=== PATIENT | female | born 1955 | race Caucasian/White ===

== ENCOUNTER 2017-08-25 07:25 | Day surgery (SDC) | payer OTHER ==
[2017-08-25] MEDS ORDERED: CEFAZOLIN 2 GM/50 ML (PMX) 50 ML IVPB (10:00)
[2017-08-25] MEDS ORDERED: SOD CHLORIDE 0.9% 1,000 ML IV (10:00)
[2017-08-25] MEDS ORDERED: ONDANSETRON 4 MG INJ (15:36)
[2017-08-25] MEDS ORDERED: PROPOFOL 20 ML (15:36)
[2017-08-25] MEDS ORDERED: METOCLOPRAMIDE 10 MG INJ (15:36)
[2017-08-25] MEDS ORDERED: CEFAZOLIN 1 GM INJ (15:36)
[2017-08-25] MEDS ORDERED: LIDOCAINE 2% (SDV) 5 ML INJ (15:36)
[2017-08-25] MEDS ORDERED: MEPERIDINE 100 MG INJ (15:36)
[2017-08-25] MEDS ORDERED: ATROPINE 1 MG/10 ML SYRINGE (16:09)
[2017-08-25] MEDS ORDERED: EPHEDrine 25 MG/5 ML SYG (16:32)
[2017-08-25] MEDS ORDERED: HYDROCODONE/APAP (7.5/325) TAB PO (17:00)
[2017-08-25] MEDS ORDERED: FENTAnyl 50 MCG/ML VIAL IV ×3 (17:30)
[2017-08-25] MEDS ORDERED: METOCLOPRAMIDE 10 MG INJ IV (17:30)
[2017-08-25] MEDS ORDERED: MIDAZOLAM 1 MG/ML 2 ML INJ IV (17:30)
[2017-08-25] MEDS ORDERED: DIPHENHYDRAMINE 50 MG INJ IV (17:30)
[2017-08-25] MEDS ORDERED: LABETALOL HCL 20MG INJ IV (17:30)
[2017-08-25] MEDS ORDERED: OXYCODONE/ACETAMINOPHEN (5/325) TAB PO ×2 (17:30)
[2017-08-25] MEDS ORDERED: HYDROmorphONE 1 MG/5 ML IV SYRINGE IV ×3 (17:30)
[2017-08-25] MEDS ORDERED: MEPERIDINE 25 MG INJ IV (17:30)
[2017-08-25] MEDS ORDERED: hydrALAzine 20 MG INJ IV (17:30)
[2017-08-25] MEDS ORDERED: EPHEDrine SULFATE 50 MG/5 ML SYG IV (17:30)
[2017-08-25] MEDS: ONDANSETRON 4 MG INJ IV (17:51)
== END 2017-08-25 11:07 | disposition home or self-care (01) ==
LOC: SDS 07:25
DX: D05.11 Intraductal carcinoma in situ of right breast (principal); N60.21 Fibroadenosis of right breast; I10 Essential (primary) hypertension
CPT/HCPCS: 19301; 88307

== ENCOUNTER 2017-10-10 06:33 | Day surgery (SDC) | payer OTHER ==
[2017-10-10] MEDS ORDERED: EPHEDrine SULFATE 50 MG/5 ML SYG (07:00)
[2017-10-10] MEDS ORDERED: LIDOCAINE 2% (SDV) 5 ML INJ (08:11)
[2017-10-10] MEDS ORDERED: PROPOFOL 20 ML (08:11)
[2017-10-10] MEDS ORDERED: MIDAZOLAM 1 MG/ML 2 ML INJ (08:11)
[2017-10-10] MEDS ORDERED: FENTAnyl 50 MCG/ML VIAL (08:11)
[2017-10-10] MEDS ORDERED: MEPERIDINE 25 MG INJ IV (08:30)
[2017-10-10] MEDS ORDERED: HYDROmorphONE 1 MG/5 ML IV SYRINGE IV ×3 (08:30)
[2017-10-10] MEDS ORDERED: FENTAnyl 50 MCG/ML VIAL IV ×2 (08:30)
[2017-10-10] MEDS ORDERED: PROCHLORPERAZINE 10 MG INJ IV (08:30)
[2017-10-10] MEDS ORDERED: DIPHENHYDRAMINE 50 MG INJ IV (08:30)
[2017-10-10] MEDS ORDERED: ONDANSETRON 4 MG INJ IV (08:30)
[2017-10-10] MEDS ORDERED: DEXAMETHASONE 4 MG/ML 1 ML INJ (08:35)
[2017-10-10] MEDS ORDERED: ONDANSETRON 4 MG INJ (08:35)
[2017-10-10] MEDS ORDERED: FAMOTIDINE 20 MG INJ (08:35)
[2017-10-10] MEDS ORDERED: CEFAZOLIN 1 GM INJ (08:41)
[2017-10-10] MEDS: FENTAnyl 50 MCG/ML VIAL IV (09:41)
== END 2017-10-10 16:00 | disposition home or self-care (01) ==
LOC: SDS 06:33
DX: R92.0 Mammographic microcalcification found on diagnostic imaging of breast (principal)
CPT/HCPCS: 19301; 88307